=== PATIENT | female | born 1980 | race Hispanic/Latino ===

== ENCOUNTER → 2020-06-04 10:37 | Outpatient (CLI) | payer OTHER, SELFPAY ==
--- NOTE | ~2020-06-04 | US_ITS ---
EXAMINATION: US pelvic complete EXAM DATE: 06/04/2020 13:58 INDICATION: Excessive frequent menstruation cycles. TECHNIQUE: Pelvic transabdominal sonogram was performed. There are multiple grayscale and Doppler im ages available for interpretation. There is no prior study for comparison. FINDINGS: Uterus measures 11.4 x 6.2 x 6.9 cm, and is morphologically normal. Endometrial stripe me asures 7 mm, within normal limits. There is no free pelvic fluid. Right adnexa: The ovary measures 2.4 x 1.5 x 2.0 cm and is morphologically normal. Ovarian vascular f low confirmed. Left adnexa: The ovary measures 3.7 x 2.9 x 3.1 cm and is morphologically normal. Ovarian vascular fl ow confirmed. IMPRESSION: 1. Unremarkable pelvic ultrasound exam. Reviewed, dictated and finalized at location B.
== END ==
PROVIDERS: PCP Family Medicine; Visit Provider Family Medicine
DX: N92.1 Excessive and frequent menstruation with irregular cycle (principal)
CPT/HCPCS: 76856

== ENCOUNTER 2020-06-15 12:21 | Outpatient (CLI) | payer OTHER, SELFPAY ==
[2020-06-15 12:32] LABS: Hematocrit 38.4 % (37.0-47.0); Hemoglobin 12.1 g/dL (12.0-15.0)
== END 2020-06-15 12:22 | disposition home or self-care (01) ==
PROVIDERS: PCP Family Medicine; Visit Provider Anesthesiology
DX: D64.9 Anemia, unspecified (principal)
CPT/HCPCS: 36415; 85014; 85018

== ENCOUNTER 2020-06-16 01:46 | Outpatient (CLI) | payer OTHER, SELFPAY ==
[2020-06-16 19:19] LABS: SARS-CoV-2 RNA PCR Negative
== END 2020-06-16 01:47 | disposition home or self-care (01) ==
LOC: ANHCOVIDDT 01:46
PROVIDERS: PCP Family Medicine; Visit Provider Surgery
DX: Z01.812 Encounter for preprocedural laboratory examination (principal); Z20.828 Contact with and (suspected) exposure to other viral communicable diseases
CPT/HCPCS: 87635; C9803; U0003

== ENCOUNTER 2020-06-18 00:45 | Day surgery (SDC) | payer OTHER, SELFPAY ==
[2020-06-03 14:29] VITALS: BMI 40.1
[2020-06-18] VITALS (8 sets, daily range): BP systolic 117–135; BP diastolic 65–93; PULSE 60–88; RESP 8–20; TEMP 36.1–36.4; O2SAT 97–100
[2020-06-18] MEDS: LACTATED RINGERS 1,000 ML 30 ML IV CONT ×2 (11:20→13:08)
[2020-06-18] MEDS: KETOROLAC 15 MG/ML VIAL (*BKC) IV PUSH (11:20)
[2020-06-18] MEDS: ACETAMINOPHEN 500 MG TABLET 1000 MG PO (11:21)
--- NOTE | 2020-06-18 11:21 | PM.IMHP ---
H&P: HPI History of Present Illness Date/Time: 06/18/20 11:21 Chief complaint: Residual Hemorrhoidal Skin Tag Narrative: Batsheva Gonzalez is a 39 year old female who presents with a lump at her anal canal. She has frequent irritation of this area with pain and occasional bleeding. She now presents for excision of the residual hemorrhoid skin tag. Review of Systems Review of Systems: All systems reviewed & are unremarkable except as noted in HPI and below Constitutional: Constitutional: Denies chills, Denies fever(s), Denies headache(s) and Denies weight loss Eyes: Eyes: Denies change in vision ENT: Denies dizziness, Denies headache(s), Denies neck mass and Denies throat swelling Cardiovascular: Cardiovascular: Denies chest pain, Denies lightheadedness and Denies dyspnea Respiratory: Respiratory: Denies cough, Denies dyspnea and Denies wheezing Gastrointestinal: Gastrointestinal: Denies abdominal pain, Denies change in bowel habits, Denies nausea and Denies vomiting Genitourinary: Genitourinary: Denies hematuria and Denies dysuria Musculoskeletal: Musculoskeletal: Reports as per HPI Integumentary/Breasts: Skin/Breast: Reports as per HPI Neurologic: Denies dizziness and Denies headache(s) Allergic/Immunologic: Allergic/Immunologic: Denies throat swelling and Denies wheezing PMFSH Surgical History Surgical History delivery delivered 1997, 1999, 2000 H/O tubal ligation 2000 Family History Family History Father Diabetes mellitus Mother Family history of thyroid disease Hypertension Social History Social History Years smoked: 5 Smoking status: Former smoker Tobacco type: cigarettes Smoking end date: 08/10/19 Alcohol intake: current Drinks per week: 1 Substance use: never Substance use type: does not use Living arrangements: with family Gender identity (if verbalized by the patient): Female Spiritual care concerns: No Meds Home Medications and Allergies Home Medications Medication Instructions Recorded Confirmed Type biotin 10,000 mcg capsule 1 mcg PO DAILY cap 05/07/20 06/03/20 History cholecalciferol (vitamin D3) 10 50 mcg PO DAILY cap 05/07/20 06/03/20 History mcg (400 unit) capsule ferrous sulfate 325 mg (65 mg 325 mg PO DAILY 05/07/20 06/03/20 History iron) tablet Allergies Allergy/AdvReac Type Severity Reaction Status Date / Time No Known Allergies Allergy Verified 06/03/20 14:27 Exam Const: General: no acute distress and alert Orientation/consciousness: patient oriented x3 HENMT: Head: normocephalic and atraumatic Ears: hearing grossly normal bilaterally General nose exam: Normal nares present Mouth: Yes Normal oral and palatal mucosa present Eyes: Periorbital: periorbital findings normal Sclera: sclerae normal EOM: EOMs intact bilaterally Neck: Neck: normal visual inspection, no lymphadenopathy and trachea midline Chest: Chest palpation & inspection: normal inspection of the chest Resp: Effort & Inspection: normal respiratory effort Auscultation: clear to auscultation bilaterally Cardio: Jugular venous distension: no JVD Rate: regular rate Rhythm: regular rhythm Heart sounds: S1 normal heart sound present and S2 normal heart sound present Peripheral pulses: Peripheral pulses 2+ throughout GI: Inspection: normal to inspection GI Palp: Yes Soft to palpation, No Tenderness to palpation present (GI), No Guarding due to palpation present (GI) and No Rebound tenderness present Percussion: Yes normal to percussion Auscultation: normal bowel sounds Other: right posterior residual hemorrhoid skin tag : General: Yes no CVA tenderness Back/Spine/Pelvis: Back: no CVA tenderness Neuro: General: patient oriented x3, no focal motor deficits and CN's II-XI inta
--- NOTE | 2020-06-18 11:24 | WPDANESEPPF ---
Anes - Initial Pre Proc Eval Procedure: Operation Date: 06/18/20 12:00 Proposed Procedures p Rectal Exam Under Anesthesia, Excision Anal Skin Tag - Khang Jiménez DO Date/Time: 06/18/20 11:24 Surgeon: Khang Jiménez DO Pre Op Diagnosis: Residual Hemorrhoidal Skin Tag Patient Data Age: 39 Gender: F Height: 1.68 m Weight: 113 kg Allergies Allergy/AdvReac Type Severity Reaction Status Date / Time No Known Allergies Allergy Verified 06/03/20 14:27 Home Medications Medication Instructions Recorded Confirmed Type biotin 10,000 mcg capsule 1 mcg PO DAILY cap 05/07/20 06/03/20 History cholecalciferol (vitamin D3) 10 50 mcg PO DAILY cap 05/07/20 06/03/20 History mcg (400 unit) capsule ferrous sulfate 325 mg (65 mg 325 mg PO DAILY 05/07/20 06/03/20 History iron) tablet Patient hx anesthesia problems: none Family hx anesthesia problems: none PMFSH Surgical History Surgical History delivery delivered 1997, 1999, 2000 H/O tubal ligation 2000 Family History Family History Father Diabetes mellitus Mother Family history of thyroid disease Hypertension Social History Social History Years smoked: 5 Smoking status: Former smoker Tobacco type: cigarettes Smoking end date: 08/10/19 Alcohol intake: current Drinks per week: 1 Substance use: never Substance use type: does not use Living arrangements: with family Gender identity (if verbalized by the patient): Female Spiritual care concerns: No Anes - Eval Final PreProcedure Day of Procedure 06/18/20 11:24 Patient weight: morbidly obese Heart: regular rate and rhythm Lungs: clear to auscultation and normal air movement Airway: Mallampati scale class III Neurological: alert and oriented Last oral intake: >/= 8 hours ASA classification: III Emergent: no Anesthetic plan: proceed Anesthesia type and monitoring: general ETT and standard monitoring Informed Consent: The patient's anesthetic plan and its attendant risks and benefits were discussed with the patient/family/POA. Questions were solicited and answers provided to the satisfaction of the patient/family/POA.
--- NOTE | 2020-06-18 11:24 | WPDHPUPDATE1 ---
History and Physical Update Update Date/Time: 06/18/20 11:24 History and Physical has been reviewed, including an updated exam of the patient. There are NO changes in the patient's condition. Risks, benefits, and alternatives have been discussed and questions answered. Patient agrees to proceed with procedure.
[2020-06-18] MEDS: ceFAZolin 2 GM/D5W 50 ML 2 GM/50 ML BAG IVPB (12:00)
--- NOTE | 2020-06-18 12:59 | PM.PROC ---
Procedure Note - Detailed Date of procedure: 06/18/20 Pre-op diagnosis: Residual Hemorrhoidal Skin Tag Post-op diagnosis: other (Internal and external complicated hemorrhoids, posterior midline intersphincteric anal fistula) Procedure performed: 1. Internal and External Hemorrhoidectomy x2 columns 2. Intersphincteric anal fistulotomy Description of procedure: Procedure as well as risks, benefits, and alternatives were discussed with the patient. Written consent was obtained and placed in chart prior to procedure. Patient was brought back to surgical suite. She was placed supine on his hospital stretcher. Time-out was done to confirm patient and procedure. She was then intubated by the Anesthesia Department. She was then repositioned into prone ean-knife position. Her perirectal area was prepped and draped in sterile fashion using Betadine prep. Digital rectal exam was initially performed. A Hill-Aguilar anoscope was then inserted and the anal rectal canal was inspected. Hemorrhoids were identified in the right anterior and left lateral positions. A Fansler anoscope was then inserted. The apex of the internal hemorrhoid bundle and the right posterior location was ligated initially using a 2 0 chromic rlilbq-mi-rckia suture. A triangular incision was then made on the anoderm including the external hemorrhoid using a 15 blade scalpel. The hemorrhoid tissue was carefully lifted free from the sphincter muscle using sharp dissection with a 15 blade scalpel. Electrocautery was then used for hemostasis. A curved Peon clamp was then placed across the hemorrhoid bundle and the hemorrhoid tissue was cut away using Metzenbaum scissors. The 2 0 chromic suture was then run across the rectal mucosa down to the anal verge across the clamp. The suture was then run back proximally to the apex stitch with running locking sutures and the stitch was then tied down in place. The area was then irrigated with sterile saline, and hemostasis along the anoderm was achieved with electrocautery. The anoderm was then reapproximated using 3 0 chromic simple interrupted sutures. I then repositioned the anoscope to the left lateral location. The apex of the internal hemorrhoid bundle and the left lateral location was ligated initially using a 2 0 chromic [id number] suture. A triangular incision was then made on the anoderm including the external hemorrhoid using a 15 blade scalpel. The hemorrhoid tissue was carefully lifted free from the sphincter muscle using sharp dissection with a 15 blade scalpel. Electrocautery was then used for hemostasis. A curved Peon clamp was then placed across the hemorrhoid bundle and the hemorrhoid tissue was cut away using Metzenbaum scissors. The 2 0 chromic suture was then run across the rectal mucosa down to the anal verge across the clamp. The suture was then run back proximally to the apex stitch with running locking sutures and the stitch was then tied down in place. The area was then irrigated with sterile saline, and hemostasis along the anoderm was achieved with electrocautery. The anoderm was then reapproximated using 3 0 chromic simple interrupted sutures. I also identified an anal fistula in the posterior midline region. A lacrimal probe was advanced from the external opening on the Androderm directly into the anal canal. This appeared to be in the intersphincteric anal fistula. It was only encompassing a few sphincter muscle fibers and did not appear to be going around the entire sphincter muscle. An incision was made directly over the fistula tract using a 15 blade scalpel and then electrocautery was used to transect the fistula tract completely. The chronic granulation tissue was cleaned up using electrocautery, and no other abnormalities were noted. The Hill-Aguilar anoscope was then reinserted and the anal rectal canal was carefully inspected 1 more time circumferentially. No other abnormalities were identified, and hemostasis
[2020-06-18] MEDS: oxyCODONE HCL (*CRX) 5 MG TAB IR PO (14:10)
--- NOTE | 2020-06-18 15:10 | SUR.PHASEII ---
SMALL AMOUNT OF BLEEDING FROM RECTUM; CHANGED PERIPAD.
== END 2020-06-18 15:11 | disposition home or self-care (01) ==
PROVIDERS: PCP Family Medicine; Visit Provider Surgery
PROC: (CPT 46275; principal; 2020-06-18 12:00)
DX: K64.8 Other hemorrhoids (principal); K64.4 Residual hemorrhoidal skin tags; K60.3 Anal fistula; Z87.891 Personal history of nicotine dependence; E66.01 Morbid (severe) obesity due to excess calories; Z68.39 Body mass index [BMI] 39.0-39.9, adult
CPT/HCPCS: 46275; 46260; 88304; A9270; C9290; J0330; J0690; J1100; J1885; J2250; J2405; J2704; J3010; J7120

== ENCOUNTER 2021-12-16 21:26 | Emergency (ER) | payer OTHER, SELFPAY ==
--- NOTE | ~2021-12-16 | XR_ITS ---
XR knee RT 3V DATE: 12/16/2021 21:55 INDICATION: Knee pain TECHNIQUE: 4 views including crosstable lateral COMPARISON: None FINDINGS: There is minimal loss of height at the medial compartment. There is minimal periarticular s purring of the patella. No fracture or dislocation or joint effusion. No radiopaque intra-articular loose body or chondrocalc inosis. IMPRESSION: Mild osteoarthritis Reviewed, dictated and finalized at location A. IMPRESSION: Mild osteoarthritis
[2021-12-16 21:27] VITALS: BP 175/103; PULSE 120; RESP 16; TEMP 36.6; O2SAT 98
--- NOTE | 2021-12-16 21:44 | ED.LOWEXIN ---
HPI - Extremity Injury (Lower) General Chief Complaint: Extremity Injury, Lower Stated Complaint: Knee pain Time Seen by Provider: 12/16/21 21:33 History of Present Illness HPI Narrative: 41-year-old female presents the emergency room with gradual onset of right knee pain. Patient states that she has been traveling via car significantly over the past week. Patient states that she has driven to [place] and back and to [place] and back over the course of the last 7 days. Patient denies injury or trauma. Patient states the pain is worse when attempting to ambulate or flex the knee. Related Data Home Medications Medication Instructions Recorded Confirmed biotin 10,000 mcg capsule 1 mcg PO DAILY cap 05/07/20 07/30/20 cholecalciferol (vitamin D3) 10 50 mcg PO DAILY cap 05/07/20 07/30/20 mcg (400 unit) capsule ferrous sulfate 325 mg (65 mg 325 mg PO DAILY 05/07/20 07/30/20 iron) tablet Allergies Allergy/AdvReac Type Severity Reaction Status Date / Time No Known Allergies Allergy Verified 07/30/20 09:49 Review of Systems Review of Systems: CONSTITUTIONAL: Denies fever, chills, or sweats. EYES: Denies visual changes, redness, or discharge. ENT: Denies rhinorrhea, congestion, sore throat, or otalgia. CARDIOVASCULAR: Denies chest pain, palpitations, or edema. RESPIRATORY: Denies cough or dyspnea. GASTROINTESTINAL: Denies abdominal pain, nausea, vomiting, or diarrhea. GENITOURINARY: Denies dysuria or hematuria. SKIN: Denies rash or itching. MUSCULOSKELETAL: Reports right knee pain NEUROLOGIC: Denies headache, numbness, dizziness, or weakness. PSYCHIATRIC: Denies anxiety or depression. [facility] Surgical History Surgical History delivery delivered 1997, 1999, 2000 H/O tubal ligation 2000 S/P hemorrhoidectomy 06/18/2020: Internal/External hemorrhoidectomy x2 columns with interspinecteric anal fisulotomy Family History Family History Father Diabetes mellitus Mother Family history of thyroid disease Hypertension Social History Social History Years smoked: 5 Smoking status: Former smoker Tobacco type: cigarettes Smoking end date: 08/10/19 Alcohol intake: current Drinks per week: 1 Substance use: never Substance use type: does not use Gender identity (if verbalized by the patient): Female Spiritual care concerns: No Exam Narrative: GENERAL: Well-appearing, well-nourished, morbidly obese and in no acute distress. HEAD: Normocephalic, atraumatic. EYES: PERRLA and EOMI. CHEST: Clear to auscultation. No respiratory distress. No wheezes rales or rhonchi HEART: Regular rate and rhythm. No murmur heard. Normal peripheral pulses. ABDOMEN: Soft, nontender, nondistended, normal active bowel sounds. EXTREMITIES: right knee: Tenderness to the popliteal area; full range of motion, no joint laxity, no popliteal tracking, no obvious bony abnormality, no ecchymosis SKIN: Warm, dry, no rash. NEURO: No focal deficits. Alert and oriented x3. PSYCH: Normal mood and affect. Course Vital Signs Vital signs: Vital Signs Temperature 36.6 C 12/16/21 21:27 Pulse Rate 120 H 12/16/21 21:27 Respiratory Rate 16 12/16/21 21:27 Blood Pressure 175/103 H 12/16/21 21:27 Pulse Oximetry 98 12/16/21 21:27 Temperature 36.6 C 12/16/21 21:27 Pulse Rate 120 H 12/16/21 21:27 Respiratory Rate 16 12/16/21 21:27 Blood Pressure 175/103 H 12/16/21 21:27 Pulse Oximetry 98 12/16/21 21:27 MDM - Extremity Injury (Lower) MDM Narrative Medical decision making narrative: 41-year-old female presents emergency room with atraumatic right knee pain. Patient states that she had been traveling in a car several days this week. Pop earlier today and difficulty ambulating Patient stated pain worse with hyperflexion of the knee. Gwendolyn
[2021-12-16] MEDS: KETOROLAC (*BKC) 60 MG/2 ML VIAL IM (21:56)
[2021-12-16 22:18] LABS: D Dimer 0.46 ug/mL (<0.48)
[2021-12-16 22:58] VITALS: BP 124/88; PULSE 78; RESP 16; TEMP 36.8; O2SAT 100
== END 2021-12-16 23:00 | disposition home or self-care (01) ==
PROVIDERS: Emergency Provider Nurse Practitioner Family; PCP Family Medicine
DX: M25.561 Pain in right knee (principal); Z87.891 Personal history of nicotine dependence
CPT/HCPCS: 36415; 73562; 85380; 96372; 99283; J1885

== ENCOUNTER 2022-01-24 07:31 | Outpatient (CLI) | payer OTHER, SELFPAY ==
[2022-01-24 08:38] LABS: Basophils Absolute Auto 0.1 K/mm3 (0.0-0.1); Basophils Percent Auto 0.8 % (0.2-1.2); Eosinophils Absolute Auto 0.1 K/mm3 (0-0.3); Hemoglobin 10.5 g/dL (12.0-15.0); Immature Granulocyte Absolute 0.02 K/mm3 (0.00-0.031); Immature Granulocyte Percent A 0.3 % (0-0.5); Lymphocytes Absolute Auto 1.91 K/mm3 (0.9-3.2); Lymphocytes Percent Auto 31.1 % (18.3-44.2); Mean Corpuscular HGB Conc 29.2 g/dl (32-36); Mean Corpuscular Hemoglobin 23.1 pg (26-34); Mean Corpuscular Volume 79.3 fl (80-100); Mean Platelet Volume 12.6 fl (7.4-10.4); Monocytes Absolute Auto 0.5 K/mm3 (0.1-0.6); Monocytes Percent Auto 7.5 % (2.6-8.5); Neutrophils Absolute Auto 3.6 K/mm3 (1.3-6.7); Neutrophils Percent Auto 58.3 % (45.5-73.1); Platelet Count Result 262 k/mm3 (150-375); Red Blood Count 4.54 M/mm3 (4.2-5.4); Red Cell Distribution Width 18.2 % (11.5-14.5); White Blood Count 6.1 K/mm3 (4.5-10.0)
[2022-01-24 08:58] LABS: Alanine Aminotransferase 9 U/L (6-35); Alkaline Phosphatase 45 U/L (38-126); Anion Gap 5 mmol/L (8-16); Aspartate Amino Transferase 20 U/L (14-36); Bilirubin,Total 0.2 mg/dL (0.2-1.3); Blood Urea Nitrogen 10 mg/dL (7-17); Calcium 8.1 mg/dL (8.4-10.2); Carbon Dioxide 27 mmol/L (22-30); Chloride 106 mmol/L (98-107); Cholesterol 156 mg/dL (0-200); Estimated Glomerular Filt Rate > 60; Glucose 104 mg/dL (65-110); HDL Direct 36 mg/dL; Potassium 3.8 mmol/L (3.4-5.0); Sodium 138 mmol/L (137-145); Triglycerides 183 mg/dL (<150)
[2022-01-24 09:09] LABS: LDL Cholesterol Direct 84 mg/dL
[2022-01-24 09:50] LABS: Hemoglobin A1C 5.4 % (<5.7)
== END 2022-01-24 07:32 | disposition home or self-care (01) ==
LOC: ANHLAB 07:32
PROVIDERS: PCP Family Medicine; Visit Provider Family Medicine
DX: Z00.00 Encounter for general adult medical examination without abnormal findings (principal); Z13.220 Encounter for screening for lipoid disorders; Z13.1 Encounter for screening for diabetes mellitus; Z13.29 Encounter for screening for other suspected endocrine disorder
CPT/HCPCS: 36415; 80053; 80061; 83036; 84443; 85025

== ENCOUNTER 2022-04-11 07:34 | Outpatient (CLI) | payer OTHER, SELFPAY ==
[2022-04-11 08:23] LABS: Basophils Absolute Auto 0.1 K/mm3 (0.0-0.1); Eosinophils Absolute Auto 0.2 K/mm3 (0-0.3); Eosinophils Percent Auto 2.7 % (0-4.4); Hematocrit 37.7 % (37.0-47.0); Hemoglobin 11.1 g/dL (12.0-15.0); Immature Granulocyte Absolute 0.02 K/mm3 (0.00-0.031); Immature Granulocyte Percent A 0.3 % (0-0.5); Immature Platelet Fraction Pct 14.5 % (0.9-11.2); Lymphocytes Absolute Auto 2.05 K/mm3 (0.9-3.2); Lymphocytes Percent Auto 26.7 % (18.3-44.2); Mean Corpuscular HGB Conc 29.4 g/dl (32-36); Mean Corpuscular Volume 81.4 fl (80-100); Monocytes Absolute Auto 0.5 K/mm3 (0.1-0.6); Monocytes Percent Auto 6.6 % (2.6-8.5); Neutrophils Absolute Auto 4.8 K/mm3 (1.3-6.7); Neutrophils Percent Auto 62.7 % (45.5-73.1); Platelet Count Result 209 k/mm3 (150-375); Red Blood Count 4.63 M/mm3 (4.2-5.4); Red Cell Distribution Width 18.8 % (11.5-14.5); White Blood Count 7.7 K/mm3 (4.5-10.0)
[2022-04-11 10:58] LABS: Hypochromasia 1+ (NORMAL); Platelet Estimate Adequate (Adequate)
== END 2022-04-11 07:35 | disposition home or self-care (01) ==
LOC: ANHLAB 07:37
PROVIDERS: PCP Family Medicine; Visit Provider Nurse Practitioner Gerontology
DX: D64.9 Anemia, unspecified (principal)
CPT/HCPCS: 36415; 85025; 85055

== ENCOUNTER → 2022-06-02 11:30 | Outpatient (CLI) | payer OTHER, SELFPAY ==
--- NOTE | ~2022-06-02 | MM_ITS ---
EXAMINATION: MM screening pranav BI w luci HISTORY: Baseline screening mammogram TECHNIQUE: Craniocaudal and mediolateral oblique 3-D tomosynthesis images were obtained and synthetic 2-D images were generated. CAD analysis was submitted and interpreted. COMPARISON: None, baseline BREAST PARENCHYMAL COMPOSITION: The breasts are almost entirely fatty. FINDINGS: There is no suspicious mass, calcification, or architectural distortion to suggest malignan cy in either breast. IMPRESSION: 1. No mammographic evidence of malignancy. 2. Recommend routine screening mammography in one year. BI-RADS Category 1: Negative Reviewed, dictated and finalized at location A.
== END ==
PROVIDERS: PCP Family Medicine; Visit Provider Family Medicine
DX: Z12.31 Encounter for screening mammogram for malignant neoplasm of breast (principal)
CPT/HCPCS: 77063; 77067

== ENCOUNTER 2022-06-06 07:34 | Outpatient (CLI) | payer OTHER, SELFPAY ==
[2022-06-06 08:21] LABS: Basophils Absolute Auto 0.1 K/mm3 (0.0-0.1); Basophils Percent Auto 0.7 % (0.2-1.2); Eosinophils Absolute Auto 0.2 K/mm3 (0-0.3); Eosinophils Percent Auto 2.8 % (0-4.4); Hematocrit 40.5 % (37.0-47.0); Hemoglobin 12.2 g/dL (12.0-15.0); Immature Granulocyte Absolute 0.03 K/mm3 (0.00-0.031); Immature Granulocyte Percent A 0.4 % (0-0.5); Lymphocytes Absolute Auto 1.81 K/mm3 (0.9-3.2); Lymphocytes Percent Auto 24.1 % (18.3-44.2); Mean Corpuscular HGB Conc 30.1 g/dl (32-36); Mean Corpuscular Hemoglobin 24.9 pg (26-34); Mean Corpuscular Volume 82.8 fl (80-100); Mean Platelet Volume 12.2 fl (7.4-10.4); Monocytes Absolute Auto 0.5 K/mm3 (0.1-0.6); Monocytes Percent Auto 6.8 % (2.6-8.5); Neutrophils Absolute Auto 4.9 K/mm3 (1.3-6.7); Neutrophils Percent Auto 65.2 % (45.5-73.1); Platelet Count Result 236 k/mm3 (150-375); Red Blood Count 4.89 M/mm3 (4.2-5.4); White Blood Count 7.5 K/mm3 (4.5-10.0)
== END 2022-06-06 07:35 | disposition home or self-care (01) ==
LOC: ANHLAB 07:36
PROVIDERS: PCP Family Medicine; Visit Provider Nurse Practitioner Gerontology
DX: D64.9 Anemia, unspecified (principal)
CPT/HCPCS: 36415; 85025